=== PATIENT | male | born 1980 | race Caucasian/White ===

== ENCOUNTER 2016-10-25 23:00 | Emergency (ER) | payer BC ==
[~2016-10-25] VITALS: Ht 182.9 cm; Wt 128.1 kg
[~2016-10-25 23:00] MED LIST: CLARITIN10 MG; GLUCOPHAGE500 MG PO; PROZAC20 MG PO; ULTRAM50 MG PO; ZOFRAN ODT4 MG PO
[2016-10-26] MEDS ORDERED: NORCO 7.5/321 TABLET PO (00:57)
[2016-10-26] MEDS ORDERED: MOTRIN800 MG PO (00:57)
[2016-10-26 01:30] VITALS: BP 142/106
== END 2016-10-26 01:30 | disposition home or self-care (01) ==
LOC: EME 23:00
DX: S05.01XA Injury of conjunctiva and corneal abrasion without foreign body, right eye, initial encounter (principal); E11.9 Type 2 diabetes mellitus without complications; Z79.84 Long term (current) use of oral hypoglycemic drugs
CPT/HCPCS: 99281; 99284; J3010